=== PATIENT | female | born 1950 | race Caucasian/White ===

== ENCOUNTER 2022-11-11 13:46 | Emergency (ER) | payer OTHER ==
[~2022-11-11] VITALS: Ht 152.4 cm; Wt 68.0 kg
[2022-11-11 14:01] VITALS: BP 129/67
[2022-11-11 17:45] LABS: BASOPHILS % 0.5 % (0.0-2.0); EOSINOPHILS % 0.5 % (0.0-5.0); HEMATOCRIT. 40.7 % (36.0-48.0); LYMPHOCYTES % 21.1 % (20.0-50.0); MEAN CORPUSCULAR HEMOGLOBIN 24.5 pg (28.0-32.0); MEAN CORPUSCULAR VOLUME 76.2 fL (81.0-99.0); MEAN PLATELET VOLUME 8.1 fl (7.4-10.4); MONOCYTES % 9.9 % (2.0-8.0); PLATELET 224 x1000/uL (130-400); RED BLOOD CELL COUNT 5.34 mill/uL (4.2-5.4); RED CELL DISTRIBUTION WIDTH 15.3 % (11.6-14.6)
[2022-11-11 17:51] LABS: CHLORIDE 99 mEq/L (98-107)
[2022-11-11 17:53] LABS: INR 0.9; PROTHROMBIN TIME 10.1 sec (9.6-11.0)
[2022-11-11 18:03] LABS: ETHANOL BLOOD < 10 mg/dL
[2022-11-11] MEDS ORDERED: ONDANSETRON 4MG ODT PO ONE (20:30)
[2022-11-11] MEDS ORDERED: MECLIZINE 25MG TABLET PO ONE (20:30)
[2022-11-11] MEDS ORDERED: MECL-159 MT (20:58)
== END 2022-11-11 21:21 | disposition home or self-care (01) ==
LOC: ER 13:46
DX: H81.10 Benign paroxysmal vertigo, unspecified ear (principal); E87.1 Hypo-osmolality and hyponatremia; I44.4 Left anterior fascicular block; I11.0 Hypertensive heart disease with heart failure; I50.9 Heart failure, unspecified; E11.9 Type 2 diabetes mellitus without complications; Z79.899 Other long term (current) drug therapy
CPT/HCPCS: 36415; 70450; 71045; 80053; 80320; 83605; 83690; 83880; 84484; 85025; 85610; 93005; 99285; J8597; Q0162; G0480

== ENCOUNTER 2023-10-02 11:53 | Emergency (ER) | payer OTHER ==
[~2023-10-02] VITALS: Ht 152.4 cm; Wt 68.0 kg
[~2023-10-02 11:53] MED LIST: MECL-299 MT
[2023-10-02 12:00] VITALS: TEMP 98.4; O2SAT 97
[2023-10-02 13:23] LABS: BASOPHILS % 0.3 % (0.0-2.0); DIFFERENTIAL COMMENT 0; EOSINOPHILS % 0.9 % (0.0-5.0); HEMATOCRIT. 34.1 % (36.0-48.0); HEMOGLOBIN. 10.8 g/dL (12.0-16.0); LYMPHOCYTES % 24.4 % (20.0-50.0); MEAN CORPUSCULAR HEMOGLOBIN 23.2 pg (28.0-32.0); MEAN CORPUSCULAR HGB CONC 31.6 g/dL (31.0-37.0); MEAN CORPUSCULAR VOLUME 73.3 fL (81.0-99.0); MEAN PLATELET VOLUME 8.8 fl (7.4-10.4); MONOCYTES % 10.1 % (2.0-8.0); NEUTROPHILS % 64.3 % (40.0-76.0); PLATELET 191 x1000/uL (130-400); RED BLOOD CELL COUNT 4.65 mill/uL (4.2-5.4); RED CELL DISTRIBUTION WIDTH 16.2 % (11.6-14.6); WHITE BLOOD COUNT 5.8 x1000/uL (4.5-11.0)
[2023-10-02 13:30] LABS: CHLORIDE 104 mEq/L (98-107); INDEX HEMOLYSI 1 (1-3); INDEX ICTERIC 1 (1-4); INDEX LIPEMIC 1 (1-3); POTASSIUM 4.3 mEq/L (3.5-5.1); SODIUM 138 mEq/L (136-145)
[2023-10-02 13:38] LABS: ALANINE AMINOTRANSFERASE 23 IU/L (13-61); ALBUMIN 3.7 g/dL (3.4-5.0); ASPARTATE AMINOTRANSFERASE 16 IU/L (15-37); BILIRUBIN TOTAL 0.2 mg/dL (0.1-1.0); CALCIUM 8.9 mg/dL (8.5-10.1); CARBON DIOXIDE 29 mEq/L (21-32); CREATININE 0.7 mg/dL (0.6-1.3); GLUCOSE 206 mg/dL (70-105); PROTEIN TOTAL 6.9 g/dL (6.0-8.3); UREA NITROGEN BLOOD 19 mg/dL (7-21)
[2023-10-02 14:14] LABS: CLARITY URINE CLEAR (CLEAR); COLOR URINE YELLOW (YELLOW); GLUCOSE URINE 3+ (NEGATIVE); KETONES URINE NEGATIVE (NEGATIVE); LEUKOCYTE ESTERASE URINE NEGATIVE (NEGATIVE); NITRITE URINE NEGATIVE (NEGATIVE); OCCULT BLOOD URINE NEGATIVE (NEGATIVE); PH URINE 5.5 (4.5-8.0); PROTEIN URINE NEGATIVE (NEGATIVE); SPECIFIC GRAVITY URINE 1.035 (1.005-1.030); UROBILINOGEN URINE 0.2 E.U./dL (0.2-1.0)
[2023-10-02 14:16] LABS: BACTERIA URINE NONE SEEN; RBC URINE NONE SEEN /hpf (0-2); SQUAMOUS EPITHELIAL CELL URINE 1+ /lpf (RARE/1+); WBC URINE 0-2 /hpf (0-2); YEAST URINE NONE SEEN
[2023-10-02 14:36] LABS: MUCUS URINE 2+ /lpf (< = 2+)
[2023-10-02] MEDS ORDERED: KETOROLAC 30MG/ML VIAL IM ONE (16:15)
[2023-10-02 16:23] VITALS: BP 114/67; PULSE 66; RESP 20
[2023-10-02] MEDS ORDERED: IBUP-2029 MT (16:40)
== END 2023-10-02 17:06 | disposition home or self-care (01) ==
LOC: ER 11:53
DX: E11.65 Type 2 diabetes mellitus with hyperglycemia (principal); I11.0 Hypertensive heart disease with heart failure; I50.9 Heart failure, unspecified; Z88.0 Allergy status to penicillin
CPT/HCPCS: 99285; 71045; 80053; 81003; 82962; 83690; 85025; 36415; 93005; 96372; J1885

== ENCOUNTER 2024-02-04 11:06 | Emergency (ER) | payer OTHER ==
[~2024-02-04] VITALS: Ht 162.6 cm; Wt 75.0 kg
[~2024-02-04 11:06] MED LIST changes: +IBUP-2029 MT
[2024-02-04 11:09] VITALS: O2SAT 98
[2024-02-04 12:20] VITALS: BP 132/57; PULSE 70; RESP 20; TEMP 98.7
[2024-02-04] MEDS: SODIUM CHLORIDE 0.9% 1,000 ML IV ONE ×2 (12:29→14:29)
[2024-02-04 12:42] LABS: BASOPHILS % 0.5 % (0.0-2.0); DIFFERENTIAL COMMENT 0; EOSINOPHILS % 0.4 % (0.0-5.0); HEMATOCRIT. 34.3 % (36.0-48.0); HEMOGLOBIN. 10.7 g/dL (12.0-16.0); LYMPHOCYTES % 15.3 % (20.0-50.0); MEAN CORPUSCULAR HEMOGLOBIN 22.4 pg (28.0-32.0); MEAN CORPUSCULAR HGB CONC 31.1 g/dL (31.0-37.0); MEAN CORPUSCULAR VOLUME 72.1 fL (81.0-99.0); MEAN PLATELET VOLUME 10.4 fl (7.4-10.4); MONOCYTES % 7.1 % (2.0-8.0); NEUTROPHILS % 76.7 % (40.0-76.0); PLATELET 204 x1000/uL (130-400); RED BLOOD CELL COUNT 4.76 mill/uL (4.2-5.4); RED CELL DISTRIBUTION WIDTH 16.7 % (11.6-14.6); WHITE BLOOD COUNT 6.7 x1000/uL (4.5-11.0)
[2024-02-04 12:52] LABS: ALANINE AMINOTRANSFERASE 20 IU/L (10-49); ALBUMIN 4.4 g/dL (3.2-4.8); ASPARTATE AMINOTRANSFERASE 36 IU/L (<34); BILIRUBIN TOTAL 0.2 mg/dL (0.1-1.0); CALCIUM 8.7 mg/dL (8.7-10.4); CARBON DIOXIDE 23 mEq/L (21-32); CHLORIDE 101 mEq/L (98-107); POTASSIUM 4.7 mEq/L (3.5-5.1); PROTEIN TOTAL 6.6 g/dL (6.0-8.3); SODIUM 132 mEq/L (136-145); TROPONIN I HIGH SENSITIVITY 4 ng/L (3.0-34); UREA NITROGEN BLOOD 16 mg/dL (9-23)
[2024-02-04 12:54] LABS: INR 0.9; PROTHROMBIN TIME 10.2 sec (9.6-11.0)
[2024-02-04] MEDS: ACETAMINOPHEN 325MG TABLET PO ONE (12:59)
[2024-02-04 13:15] LABS: GLUCOSE 460 mg/dL (70-105)
[2024-02-04] MEDS: INSULIN LISPRO 100 UNITS/ML SUBCUT SCH (13:20)
[2024-02-04] MEDS ORDERED: DEXTROSE 50% WATER 50ML SYRINGE IV PRN (13:30)
[2024-02-04 13:31] LABS: CLARITY URINE CLEAR (CLEAR); COLOR URINE YELLOW (YELLOW); GLUCOSE URINE 3+ (NEGATIVE); KETONES URINE NEGATIVE (NEGATIVE); LEUKOCYTE ESTERASE URINE NEGATIVE (NEGATIVE); NITRITE URINE NEGATIVE (NEGATIVE); OCCULT BLOOD URINE NEGATIVE (NEGATIVE); PH URINE 5.5 (4.5-8.0); PROTEIN URINE NEGATIVE (NEGATIVE); UROBILINOGEN URINE 0.2 E.U./dL (0.2-1.0)
[2024-02-04 13:47] LABS: BACTERIA URINE NONE SEEN; RBC URINE 0-2 /hpf (0-2); SQUAMOUS EPITHELIAL CELL URINE 1+ /lpf (RARE/1+); WBC URINE 0-2 /hpf (0-2); YEAST URINE RARE
[2024-02-04] MEDS ORDERED: BLOOD SUGAR DIAGNOSTIC STRIP TEST SCH (17:00)
== END 2024-02-04 15:15 | disposition home or self-care (01) ==
LOC: ER 11:06
DX: M79.10 Myalgia, unspecified site (principal); E11.65 Type 2 diabetes mellitus with hyperglycemia; I11.0 Hypertensive heart disease with heart failure; I50.9 Heart failure, unspecified; Z88.0 Allergy status to penicillin
CPT/HCPCS: 99285; 96360; 71045; 96361; 80053; 81003; 83880; 85025; 85610; 84484; 36415; 93005; 96372; 82962; J1815; J7030

== ENCOUNTER 2024-05-17 13:05 | Emergency (ER) | payer MEDICARE, OTHER ==
[~2024-05-17] VITALS: Ht 165.1 cm; Wt 77.0 kg
[~2024-05-17 13:05] MED LIST changes: +INSU100I28 SQ
[2024-05-17 13:06] VITALS: O2SAT 98
[2024-05-17] MEDS ORDERED: KETOROLAC 30MG/ML VIAL IM STA (14:36)
[2024-05-17 16:01] VITALS: TEMP 98.6
[2024-05-17 16:22] LABS: BASOPHILS % 0.5 % (0.0-2.0); DIFFERENTIAL COMMENT 0; EOSINOPHILS % 1.1 % (0.0-5.0); HEMATOCRIT. 32.5 % (36.0-48.0); HEMOGLOBIN. 10.1 g/dL (12.0-16.0); LYMPHOCYTES % 27.1 % (20.0-50.0); MEAN CORPUSCULAR HEMOGLOBIN 21.9 pg (28.0-32.0); MEAN CORPUSCULAR HGB CONC 31.2 g/dL (31.0-37.0); MEAN CORPUSCULAR VOLUME 70.3 fL (81.0-99.0); MEAN PLATELET VOLUME 8.7 fl (7.4-10.4); MONOCYTES % 9.8 % (2.0-8.0); NEUTROPHILS % 61.5 % (40.0-76.0); PLATELET 200 x1000/uL (130-400); RED BLOOD CELL COUNT 4.62 mill/uL (4.2-5.4); RED CELL DISTRIBUTION WIDTH 16.8 % (11.6-14.6); WHITE BLOOD COUNT 5.5 x1000/uL (4.5-11.0)
[2024-05-17 16:29] LABS: CHLORIDE 102 mEq/L (98-107); POTASSIUM 4.2 mEq/L (3.5-5.1); SODIUM 134 mEq/L (136-145)
[2024-05-17 16:30] LABS: CALCIUM 9.5 mg/dL (8.7-10.4); CARBON DIOXIDE 26 mEq/L (21-32)
[2024-05-17 16:35] LABS: CREATININE 0.8 mg/dL (0.6-1.0); GLUCOSE 269 mg/dL (70-105); UREA NITROGEN BLOOD 13 mg/dL (9-23)
[2024-05-17 16:36] LABS: TROPONIN I HIGH SENSITIVITY < 4 ng/L (3.0-34)
[2024-05-17 16:38] LABS: INR 0.9; PROTHROMBIN TIME 10.3 sec (9.6-11.0)
[2024-05-17] MEDS ORDERED: CYCL10TA21 MT (17:21)
[2024-05-17] MEDS: KETOROLAC 30MG/ML VIAL IV ONE (17:59)
[2024-05-17 19:10] VITALS: BP 165/88; PULSE 63; RESP 18
== END 2024-05-17 19:12 | disposition home or self-care (01) ==
LOC: ER 13:53
DX: S13.4XXA Sprain of ligaments of cervical spine, initial encounter (principal); R07.89 Other chest pain; I11.0 Hypertensive heart disease with heart failure; I50.9 Heart failure, unspecified; F41.9 Anxiety disorder, unspecified; E11.9 Type 2 diabetes mellitus without complications; X58.XXXA Exposure to other specified factors, initial encounter; Y93.89 Activity, other specified; Y92.89 Other specified places as the place of occurrence of the external cause; Y99.8 Other external cause status
CPT/HCPCS: 99285; 96374; 71045; 80048; 83880; 85025; 85610; 84484; 36415; 72040; 93005; J1885

== ENCOUNTER 2024-06-15 10:24 | Emergency (ER) | payer OTHER ==
[~2024-06-15] VITALS: Ht 165.1 cm; Wt 80.0 kg
[~2024-06-15 10:24] MED LIST changes: +CYCL10TA21 MT
[2024-06-15 10:26] VITALS: O2SAT 97
[2024-06-15] MEDS: ONDANSETRON HCL 4MG/2ML INJ IV ONE (11:11)
[2024-06-15] MEDS: LACTATED RINGERS 1,000 ML IV SCH (11:11)
[2024-06-15 11:23] LABS: BASOPHILS % 0.5 % (0.0-2.0); DIFFERENTIAL COMMENT 0; EOSINOPHILS % 0.9 % (0.0-5.0); HEMATOCRIT. 33.7 % (36.0-48.0); HEMOGLOBIN. 10.4 g/dL (12.0-16.0); LYMPHOCYTES % 23.8 % (20.0-50.0); MEAN CORPUSCULAR HEMOGLOBIN 21.9 pg (28.0-32.0); MEAN CORPUSCULAR VOLUME 70.7 fL (81.0-99.0); MEAN PLATELET VOLUME 8.7 fl (7.4-10.4); MONOCYTES % 13.4 % (2.0-8.0); NEUTROPHILS % 61.4 % (40.0-76.0); PLATELET 211 x1000/uL (130-400); RED BLOOD CELL COUNT 4.77 mill/uL (4.2-5.4); RED CELL DISTRIBUTION WIDTH 17.3 % (11.6-14.6); WHITE BLOOD COUNT 4.9 x1000/uL (4.5-11.0)
[2024-06-15 11:34] LABS: CHLORIDE 102 mEq/L (98-107); POTASSIUM 4.2 mEq/L (3.5-5.1); SODIUM 134 mEq/L (136-145)
[2024-06-15 11:35] LABS: CALCIUM 9.2 mg/dL (8.7-10.4); CARBON DIOXIDE 26 mEq/L (21-32)
[2024-06-15 11:40] LABS: CREATININE 0.8 mg/dL (0.6-1.0); GLUCOSE 263 mg/dL (70-105); UREA NITROGEN BLOOD 12 mg/dL (9-23)
[2024-06-15 11:42] LABS: ALANINE AMINOTRANSFERASE 14 IU/L (10-49); ALBUMIN 4.4 g/dL (3.2-4.8); ASPARTATE AMINOTRANSFERASE 17 IU/L (<34); BILIRUBIN TOTAL 0.3 mg/dL (0.1-1.0); PROTEIN TOTAL 6.5 g/dL (6.0-8.3)
[2024-06-15 12:11] LABS: BILIRUBIN DIRECT < 0.1 mg/dL (<=3.0)
[2024-06-15] MEDS ORDERED: POLY17PO3 MT (12:52)
[2024-06-15] MEDS ORDERED: ONDA4TAB11 PO (12:52)
[2024-06-15 14:13] VITALS: BP 156/75; PULSE 94; RESP 22; TEMP 97.8
== END 2024-06-15 14:15 | disposition home or self-care (01) ==
LOC: ER 10:24
DX: K59.00 Constipation, unspecified (principal); R11.0 Nausea; F41.9 Anxiety disorder, unspecified; E11.9 Type 2 diabetes mellitus without complications; I11.0 Hypertensive heart disease with heart failure; I50.9 Heart failure, unspecified; E78.00 Pure hypercholesterolemia, unspecified; Z98.890 Other specified postprocedural states; Z88.0 Allergy status to penicillin
CPT/HCPCS: 99285; 74176; 96374; 96361; 80076; 80048; 83690; 85025; 36415; J2405

== ENCOUNTER 2024-07-12 15:38 | Emergency (ER) | payer OTHER ==
[~2024-07-12] VITALS: Ht 162.6 cm; Wt 73.0 kg
[~2024-07-12 15:38] MED LIST changes: +ONDA4TAB11 PO; +POLY17PO3 MT
[2024-07-12 15:43] VITALS: BP 137/59; PULSE 80; RESP 18; TEMP 97.4; O2SAT 100
[2024-07-12] MEDS: ONDANSETRON 4MG ODT PO ONE (17:29)
[2024-07-12] MEDS: ACETAMINOPHEN 650MG/20.3ML UDC PO ONE (17:29)
== END 2024-07-12 18:00 | disposition left against medical advice (07) ==
LOC: ER 15:38
DX: I63.9 Cerebral infarction, unspecified (principal); I10 Essential (primary) hypertension; E78.00 Pure hypercholesterolemia, unspecified; E11.9 Type 2 diabetes mellitus without complications; F41.9 Anxiety disorder, unspecified; I11.0 Hypertensive heart disease with heart failure; I50.9 Heart failure, unspecified; Z88.0 Allergy status to penicillin; Z79.899 Other long term (current) drug therapy
CPT/HCPCS: 99284; 70450; Q0162

== ENCOUNTER 2024-07-13 15:29 | Inpatient (IN) | payer OTHER, MEDICARE ==
[~2024-07-13] VITALS: Ht 152.4 cm; Wt 68.5 kg
[2024-07-13 16:18] LABS: BASOPHILS % 0.3 % (0.0-2.0); DIFFERENTIAL COMMENT 0; EOSINOPHILS % 0.1 % (0.0-5.0); HEMATOCRIT. 32.4 % (36.0-48.0); LYMPHOCYTES % 20.9 % (20.0-50.0); MEAN CORPUSCULAR HEMOGLOBIN 21.7 pg (28.0-32.0); MEAN CORPUSCULAR HGB CONC 30.9 g/dL (31.0-37.0); MEAN CORPUSCULAR VOLUME 70.2 fL (81.0-99.0); MEAN PLATELET VOLUME 8.9 fl (7.4-10.4); MONOCYTES % 10.4 % (2.0-8.0); NEUTROPHILS % 68.3 % (40.0-76.0); PLATELET 203 x1000/uL (130-400); RED BLOOD CELL COUNT 4.61 mill/uL (4.2-5.4); RED CELL DISTRIBUTION WIDTH 17.5 % (11.6-14.6)
[2024-07-13 16:20] LABS: CHLORIDE 96 mEq/L (98-107); POTASSIUM 4.5 mEq/L (3.5-5.1); SODIUM 128 mEq/L (136-145)
[2024-07-13 16:21] LABS: CALCIUM 9.1 mg/dL (8.7-10.4); CARBON DIOXIDE 25 mEq/L (21-32)
[2024-07-13 16:26] LABS: GLUCOSE 324 mg/dL (70-105); UREA NITROGEN BLOOD 15 mg/dL (9-23)
[2024-07-13 16:33] LABS: INR 0.9; PROTHROMBIN TIME 10.1 sec (9.6-11.0)
[2024-07-13 16:38] LABS: ETHANOL BLOOD < 10 mg/dL (<10)
[2024-07-13] MEDS: SODIUM CHLORIDE 0.9% 1,000 ML IV ONE (17:56)
[2024-07-13 19:31] LABS: CLARITY URINE CLEAR (CLEAR); COLOR URINE YELLOW (YELLOW); GLUCOSE URINE 3+ (NEGATIVE); KETONES URINE NEGATIVE (NEGATIVE); LEUKOCYTE ESTERASE URINE NEGATIVE (NEGATIVE); NITRITE URINE NEGATIVE (NEGATIVE); OCCULT BLOOD URINE NEGATIVE (NEGATIVE); PH URINE 5.5 (4.5-8.0); PROTEIN URINE NEGATIVE (NEGATIVE); SPECIFIC GRAVITY URINE 1.006 (1.005-1.030); UROBILINOGEN URINE 0.2 E.U./dL (0.2-1.0)
[2024-07-13 19:40] LABS: *AMPHETAMINES SCREEN URINE NEGATIVE (NEGATIVE); *BARBITURATES SCREEN URINE NEGATIVE (NEGATIVE); *BENZODIAZEPINES SCREEN URINE NEGATIVE (NEGATIVE); *COCAINE SCREEN URINE NEGATIVE (NEGATIVE); CANNABINOID URINE SCREEN NEGATIVE (NEGATIVE); ECSTASY MDMA SCREEN URINE NEGATIVE (NEGATIVE); METHADONE URINE SCREEN NEGATIVE (NEGATIVE); OPIATES URINE SCREEN NEGATIVE (NEGATIVE); PHENCYCLIDINE URINE SCREEN NEGATIVE (NEGATIVE)
[2024-07-13 20:45] LABS: BACTERIA URINE TRACE; RBC URINE 0-2 /hpf (0-2); SQUAMOUS EPITHELIAL CELL URINE FEW /lpf (RARE/1+); WBC URINE 0-2 /hpf (0-2)
[2024-07-14] MEDS: ASPIRIN 81MG EC TABLET PO SCH (10:41)
[2024-07-14] MEDS: CLOPIDOGREL 75MG TABLET PO SCH (10:41)
[2024-07-14] MEDS: HYDRALAZINE 20MG/ML VIAL IV PRN (11:09)
[2024-07-14 16:00] VITALS: BP 153/83; PULSE 88; RESP 24; TEMP 36.9474; O2SAT 98
[2024-07-14] MEDS: ACETAMINOPHEN 325MG TABLET PO PRN (16:30)
[2024-07-14] MEDS: ENOXAPARIN 40MG/0.4ML SYR SUBCUT SCH (16:34)
[2024-07-14 17:00] VITALS: BP 153/83; PULSE 88; RESP 24; TEMP 36.974
[2024-07-14] MEDS ORDERED: DEXTROSE 50% WATER 50ML SYRINGE IV PRN (19:00)
[2024-07-14] MEDS: CLONIDINE 0.1MG TABLET PO PRN (19:07)
[2024-07-14] MEDS: INSULIN LISPRO 100 UNITS/ML SUBCUT NR (19:08)
[2024-07-14 20:30] VITALS: BP 146/73; PULSE 87; RESP 21; TEMP 36.44736; O2SAT 95
[2024-07-14] MEDS: ATORVASTATIN CALCIUM 40MG TABLET PO SCH (21:11)
[2024-07-14] MEDS: BLOOD SUGAR DIAGNOSTIC STRIP TEST SCH (21:16)
[2024-07-14] MEDS: INSULIN LISPRO 100 UNITS/ML SUBCUT SCH (21:24)
[2024-07-14] MEDS: INSULIN GLARGINE 100 UNITS/ML SUBCUT SCH (21:28)
[2024-07-15 00:27] VITALS: BP 126/74; PULSE 74; RESP 18; TEMP 36.72516; O2SAT 97
[2024-07-15 04:33] LABS: CLARITY URINE CLEAR (CLEAR); COLOR URINE YELLOW (YELLOW); GLUCOSE URINE 3+ (NEGATIVE); KETONES URINE 3+ (NEGATIVE); LEUKOCYTE ESTERASE URINE TRACE (NEGATIVE); NITRITE URINE NEGATIVE (NEGATIVE); OCCULT BLOOD URINE NEGATIVE (NEGATIVE); PROTEIN URINE NEGATIVE (NEGATIVE); SPECIFIC GRAVITY URINE 1.027 (1.005-1.030); UROBILINOGEN URINE 0.2 E.U./dL (0.2-1.0)
[2024-07-15 04:42] LABS: *AMPHETAMINES SCREEN URINE NEGATIVE (NEGATIVE); *BARBITURATES SCREEN URINE NEGATIVE (NEGATIVE); *BENZODIAZEPINES SCREEN URINE PRESUMPTIVE POSITIVE (NEGATIVE)
[2024-07-15 04:43] LABS: *COCAINE SCREEN URINE NEGATIVE (NEGATIVE); CANNABINOID URINE SCREEN NEGATIVE (NEGATIVE); ECSTASY MDMA SCREEN URINE NEGATIVE (NEGATIVE); METHADONE URINE SCREEN NEGATIVE (NEGATIVE); OPIATES URINE SCREEN NEGATIVE (NEGATIVE); PHENCYCLIDINE URINE SCREEN NEGATIVE (NEGATIVE)
[2024-07-15 05:03] LABS: RBC URINE 0-2 /hpf (0-2); SQUAMOUS EPITHELIAL CELL URINE FEW /lpf (RARE/1+)
[2024-07-15 05:04] LABS: BACTERIA URINE TRACE
[2024-07-15] MEDS: PANTOPRAZOLE 40MG DR TABLET PO SCH (06:17)
[2024-07-15 08:14] VITALS: BP 165/69; PULSE 86; RESP 21; TEMP 36.72516; O2SAT 96
[2024-07-15] MEDS ORDERED: NALOXONE HCL 0.4MG/ML VIAL IV PRN (09:00)
[2024-07-15 12:00] VITALS: BP 129/69; PULSE 82; RESP 21; TEMP 36.89184; O2SAT 98
[2024-07-15] MEDS: INSULIN GLARGINE 100 UNITS/ML SUBCUT NR (13:22)
[2024-07-15] MEDS: HYDROCODONE/ACETAMINOPHEN 5/325MG TABLET PO PRN (13:40)
[2024-07-15 14:01] LABS: HEPATITIS B SURFACE ANTIGEN NEGATIVE (Negative)
[2024-07-15 14:22] LABS: HEPATITIS C AB NON REACTIVE (Neg) (Negative)
[2024-07-15 16:00] VITALS: BP 136/66; PULSE 73; RESP 17; TEMP 36.72516; O2SAT 98
[2024-07-15] MEDS: ONDANSETRON HCL 4MG/2ML INJ IV PRN (17:55)
[2024-07-15 18:35] LABS: BASOPHILS % 0.3 % (0.0-2.0); DIFFERENTIAL COMMENT 0; EOSINOPHILS % 0.4 % (0.0-5.0); HEMATOCRIT. 32.6 % (36.0-48.0); HEMOGLOBIN. 10.3 g/dL (12.0-16.0); LYMPHOCYTES % 21.7 % (20.0-50.0); MEAN CORPUSCULAR HEMOGLOBIN 22.2 pg (28.0-32.0); MEAN CORPUSCULAR HGB CONC 31.5 g/dL (31.0-37.0); MEAN CORPUSCULAR VOLUME 70.4 fL (81.0-99.0); MEAN PLATELET VOLUME 8.4 fl (7.4-10.4); MONOCYTES % 10.8 % (2.0-8.0); NEUTROPHILS % 66.8 % (40.0-76.0); PLATELET 256 x1000/uL (130-400); RED BLOOD CELL COUNT 4.63 mill/uL (4.2-5.4); RED CELL DISTRIBUTION WIDTH 17.9 % (11.6-14.6); WHITE BLOOD COUNT 5.1 x1000/uL (4.5-11.0)
[2024-07-15 18:43] LABS: CHLORIDE 100 mEq/L (98-107); POTASSIUM 4.2 mEq/L (3.5-5.1); SODIUM 132 mEq/L (136-145)
[2024-07-15 18:44] LABS: CARBON DIOXIDE 26 mEq/L (21-32)
[2024-07-15 18:45] LABS: CALCIUM 9.3 mg/dL (8.7-10.4)
[2024-07-15 18:49] LABS: CREATININE 0.8 mg/dL (0.6-1.0); GLUCOSE 182 mg/dL (70-105)
[2024-07-15 18:50] LABS: UREA NITROGEN BLOOD 13 mg/dL (9-23)
[2024-07-15 18:51] LABS: ALANINE AMINOTRANSFERASE 16 IU/L (10-49); ALBUMIN 4.4 g/dL (3.2-4.8); ASPARTATE AMINOTRANSFERASE 16 IU/L (<34)
[2024-07-15 18:52] LABS: BILIRUBIN TOTAL 0.3 mg/dL (0.1-1.0); PROTEIN TOTAL 6.6 g/dL (6.0-8.3)
[2024-07-15 19:16] VITALS: BP 148/62; PULSE 88; RESP 17; TEMP 36.50292; O2SAT 96
[2024-07-15] MEDS: ZOLPIDEM TARTRATE 5MG TABLET PO PRN (19:58)
[2024-07-16 00:03] VITALS: BP 107/55; PULSE 72; RESP 20; TEMP 36.72516; O2SAT 93
[2024-07-16 04:27] VITALS: BP 136/71; PULSE 64; RESP 15; TEMP 36.78072; O2SAT 94
[2024-07-16 06:50] LABS: BASOPHILS % 0.6 % (0.0-2.0); DIFFERENTIAL COMMENT 0; EOSINOPHILS % 0.7 % (0.0-5.0); HEMATOCRIT. 33.2 % (36.0-48.0); HEMOGLOBIN. 10.4 g/dL (12.0-16.0); MEAN CORPUSCULAR HEMOGLOBIN 22.1 pg (28.0-32.0); MEAN CORPUSCULAR HGB CONC 31.3 g/dL (31.0-37.0); MEAN CORPUSCULAR VOLUME 70.5 fL (81.0-99.0); MEAN PLATELET VOLUME 8.3 fl (7.4-10.4); MONOCYTES % 11.6 % (2.0-8.0); NEUTROPHILS % 58.1 % (40.0-76.0); PLATELET 246 x1000/uL (130-400); RED CELL DISTRIBUTION WIDTH 18.3 % (11.6-14.6); WHITE BLOOD COUNT 4.1 x1000/uL (4.5-11.0)
[2024-07-16 07:09] LABS: CARBON DIOXIDE 27 mEq/L (21-32); CHLORIDE 99 mEq/L (98-107); POTASSIUM 4.2 mEq/L (3.5-5.1); SODIUM 133 mEq/L (136-145)
[2024-07-16 07:10] LABS: CALCIUM 9.3 mg/dL (8.7-10.4)
[2024-07-16 07:15] LABS: CREATININE 0.8 mg/dL (0.6-1.0); GLUCOSE 164 mg/dL (70-105); UREA NITROGEN BLOOD 12 mg/dL (9-23)
[2024-07-16 08:00] VITALS: BP 149/80; PULSE 91; RESP 22; TEMP 36.72516; O2SAT 97
[2024-07-16 12:00] VITALS: BP 146/39; PULSE 71; RESP 20; TEMP 36.89184; O2SAT 96
[2024-07-16] MEDS: LACTULOSE 20G/30ML UDC PO NR (13:43)
[2024-07-16] MEDS ORDERED: CLOP-31 PO (15:11)
[2024-07-16] MEDS ORDERED: ASPI-1406 PO (15:11)
[2024-07-16] MEDS ORDERED: LIP40 PO (15:11)
[2024-07-16 16:00] VITALS: BP 147/77; PULSE 82; RESP 16; TEMP 37.05852; O2SAT 95
[2024-07-16 21:39] VITALS: BP 180/70; PULSE 78; RESP 19; TEMP 36.61404; O2SAT 95
[2024-07-17] VITALS: BP 135/80; PULSE 80; RESP 18; TEMP 36.6696; O2SAT 99
[2024-07-17 04:00] VITALS: BP 137/82; PULSE 82; RESP 18; TEMP 36.55848; O2SAT 98
[2024-07-17 08:00] VITALS: BP 170/76; PULSE 80; RESP 18; TEMP 36.3918; O2SAT 98
[2024-07-17 12:00] VITALS: BP 122/68; PULSE 80; RESP 18; TEMP 36.61404; O2SAT 98
[2024-07-17 16:00] VITALS: BP 157/61; PULSE 70; RESP 18; TEMP 35.89176; O2SAT 98
[2024-07-18] VITALS: BP 164/80; PULSE 80; RESP 18; TEMP 36.89184; O2SAT 98
[2024-07-18 04:00] VITALS: BP 149/72; PULSE 70; RESP 18; TEMP 36.61404; O2SAT 97
[2024-07-18 08:00] VITALS: BP 151/61; PULSE 75; RESP 18; TEMP 36.55848; O2SAT 98
[2024-07-18 12:00] VITALS: BP 165/58; PULSE 79; RESP 18; TEMP 36.6696; O2SAT 95
[2024-07-18 16:00] VITALS: BP 162/56; PULSE 70; RESP 18; TEMP 36.61404; O2SAT 95
[2024-07-18 20:00] VITALS: BP 167/79; PULSE 70; PULSE 74; RESP 18; TEMP 36.6696; O2SAT 96; O2SAT 97
[2024-07-19] VITALS: BP_SYST 164; BP_SYST 170; BP_DIAS 70; BP_DIAS 85; PULSE 69; PULSE 74; RESP 18; RESP 20; TEMP 36.33624; TEMP 36.6696; O2SAT 96
[2024-07-19 04:00] VITALS: BP_SYST 160; BP_SYST 176; BP_DIAS 69; BP_DIAS 94; PULSE 72; PULSE 81; RESP 17; RESP 19; TEMP 36.28068; TEMP 37.11408; O2SAT 96; O2SAT 97
[2024-07-19 08:00] VITALS: BP 135/87; PULSE 75; RESP 18; TEMP 36.3918; O2SAT 96
[2024-07-19 12:00] VITALS: BP 155/86; PULSE 84; RESP 20; TEMP 35.78064; O2SAT 98
[2024-07-19 16:00] VITALS: BP 160/67; PULSE 83; RESP 18; TEMP 37.72524; O2SAT 100
[2024-07-19] MEDS: LACTULOSE 20G/30ML UDC PO NR (18:10)
[2024-07-19 20:00] VITALS: BP 120/48; PULSE 76; RESP 18; TEMP 36.61404; O2SAT 98
[2024-07-19] MEDS: ZOLPIDEM TARTRATE 5MG TABLET PO PRN (21:51)
[2024-07-20] VITALS: BP 119/50; PULSE 65; RESP 19; TEMP 36.61404; O2SAT 98
[2024-07-20 05:01] VITALS: BP 136/65; PULSE 65; RESP 18; TEMP 36.50292; O2SAT 97
[2024-07-20 08:00] VITALS: BP 141/62; PULSE 66; RESP 16; TEMP 36.28068; O2SAT 98
[2024-07-20] MEDS: FAMOTIDINE 20MG TABLET PO SCH (09:22)
[2024-07-20 12:00] VITALS: BP 121/61; PULSE 109; RESP 19; TEMP 36.114; O2SAT 98
[2024-07-20] MEDS: LACTULOSE 20G/30ML UDC PO SCH (14:40)
[2024-07-20 16:00] VITALS: BP 139/57; PULSE 78; RESP 16; TEMP 36.05844; O2SAT 98
[2024-07-20] MEDS: NA PHOS,M-B/NA PHOS,DI-BA ENEMA 118ML PR NR (19:01)
[2024-07-20 19:53] VITALS: BP 151/70; PULSE 84; TEMP 97; O2SAT 98
== END 2024-07-20 20:40 | DRG 64 ==
LOC: ER 15:29 → 5WST 17:42 → EDBEDREQTM 17:46 → EDBEDREQ 17:47 → 5WST 07-14 10:04 → 3WST 07-14 15:36 → 7EST 07-16 22:29
PROVIDERS: ADMIT Internal Medicine; ATTEND Internal Medicine
DX: I63.81 Other cerebral infarction due to occlusion or stenosis of small artery (principal); U07.1 COVID-19; I16.0 Hypertensive urgency; I50.9 Heart failure, unspecified; R29.704 NIHSS score 4; I11.0 Hypertensive heart disease with heart failure; F41.9 Anxiety disorder, unspecified; E78.00 Pure hypercholesterolemia, unspecified; Z79.4 Long term (current) use of insulin; Z88.0 Allergy status to penicillin; Z91.041 Radiographic dye allergy status; E11.65 Type 2 diabetes mellitus with hyperglycemia
CPT/HCPCS: 36415; 70551; 71045; 80048; 80053; 80061; 80305; 80320; 81003; 82962; 83036; 85025; 86705; 87340; 87426; 92523; 92610; 93005; 93306; 93880; 97116; 97162; 97166; 97168; 99291; J0360; J1650; J1815; J2405; J7030; G0480